=== PATIENT | male | born 1950 | race Caucasian/White ===

== ENCOUNTER 2018-03-30 09:10 | Outpatient (RCR) | payer OTHER | END 2018-04-26 | disposition home or self-care (01) | LOC: PTY 09:10 | DX: M25.511 Pain in right shoulder (principal); M25.512 Pain in left shoulder ==

== ENCOUNTER 2018-05-07 09:15 | Outpatient (RCR) | payer OTHER | END 2018-05-26 | disposition home or self-care (01) | LOC: PTY 09:15 | DX: M25.511 Pain in right shoulder (principal); M25.512 Pain in left shoulder ==